=== PATIENT | female | born 1950 | race Two or more races ===

== ENCOUNTER 2018-07-10 14:39 | Outpatient (CLI) | payer MEDICAID ==
[~2018-07-10] VITALS: Ht 149.9 cm; Wt 59.9 kg
--- NOTE | 2018-07-10 22:15 | Consultation ---
DATE OF CONSULTATION: 07/10/2018 CONSULTING PHYSICIAN: Jamal Henderson M.D. CHIEF COMPLAINT: Screening colonoscopy evaluation. PAST MEDICAL HISTORY: 1. Hypertension. 2. Diabetes. 3. GERD. 4. Hypothyroidism. PAST SURGICAL HISTORY: None. MEDICATIONS: Please see medication reconciliation list. FAMILY HISTORY: No family history of GI malignancies. SOCIAL HISTORY: The patient denies any tobacco, alcohol, or IV drug abuse. ALLERGIES: No known drug allergies. PHYSICAL EXAMINATION: VITAL SIGNS: Temperature 97.2, blood pressure 130/52, pulse 82, respirations 20. HEENT: Normocephalic and atraumatic. Sclerae anicteric. NECK: Supple. No obvious evidence of lymphadenopathy. CARDIOVASCULAR: Regular rhythm. Plus S1 and S2. No obvious murmur. LUNGS: Clear to auscultation bilaterally. ABDOMEN: Positive bowel sounds. Soft, nontender. No rebound. No guarding. No peritoneal sign. EXTREMITIES: No cyanosis. No clubbing. No edema. ASSESSMENT AND PLAN: This is a 67-year-old female with need for screening colonoscopy. The procedure was explained to her with the presence of the . Risks and benefits of the procedure were explained to her. She agreed to it. We will plan to do a screening colonoscopy when authorization from the insurance has been obtained. Jamal Henderson M.D. DR: Rut JOB#: [id number] CC:
[2018-07-11 10:08] VITALS: BP 130/62
[2018-07-11] MEDS ORDERED: SYNTHROID25 MCG ORAL (13:19)
[2018-07-11] MEDS ORDERED: HYDROCHLOROTH12.5 M2 ORAL (13:19)
[2018-07-11] MEDS ORDERED: JANUVIA25 MG ORAL (13:19)
[2018-07-11] MEDS ORDERED: VITAMIN D250000 UNI1 ORAL (13:19)
[2018-07-11] MEDS ORDERED: METFORMIN HCL1000 M1 ORAL (13:19)
[2018-07-11] MEDS ORDERED: GLIPIZIDE5 MG ORAL (13:19)
[2018-07-11] MEDS ORDERED: ATORVASTATIN CA20 MG ORAL (13:19)
[2018-07-11] MEDS ORDERED: LOSARTAN POTASS50 MG ORAL (13:19)
== END 2018-07-10 16:39 | disposition home or self-care (01) ==
LOC: PAN 14:39
DX: Z01.818 Encounter for other preprocedural examination (principal); I10 Essential (primary) hypertension; E11.9 Type 2 diabetes mellitus without complications; K21.9 Gastro-esophageal reflux disease without esophagitis; E03.9 Hypothyroidism, unspecified
CPT/HCPCS: 99202